=== PATIENT | male | born 1985 | race Caucasian/White ===

== ENCOUNTER 2016-12-09 12:15 | Emergency (ER) | payer OTHER ==
--- NOTE | 2016-12-09 13:23 | C.PDOC ---
History Of Present Illness 30 y/o male presents to the emergency department for evaluation of left-sided chest discomfort which began around 2 days ago. Patient notes his pain is positionally and digitally reproducible. Patient denies cough, SOB, palpitations , nausea, vomiting, extremity numbness/weakness. Time Seen by Provider: 12/09/16 13:11 Chief Complaint (Nursing): Chest Pain History Per: Patient History/Exam Limitations: no limitations Onset/Duration Of Symptoms: Days (2) Current Symptoms Are (Timing): Still Present Quality: "Pain" Associated Symptoms: denies: Nausea Additional History Per: Patient Past Medical History Reviewed: Historical Data, Nursing Documentation, Vital Signs Vital Signs: Last Vital Signs Temp 98.2 F 12/09/16 13:30 Pulse 62 12/09/16 13:30 Resp 18 12/09/16 13:30 BP 119/78 12/09/16 13:30 Pulse Ox 96 12/09/16 16:12 - Medical History PMH: No Chronic Diseases Surgical History: No Surg Hx Family History: States: Unknown Family Hx - Social History Hx Alcohol Use: No Hx Substance Use: No - Immunization History Hx Tetanus Toxoid Vaccination: No Hx Influenza Vaccination: No Hx Pneumococcal Vaccination: No Review Of Systems Except As Marked, All Systems Reviewed And Found Negative. Cardiovascular: Positive for: Chest Pain (left-sided discomfort ). Negative for : Palpitations Respiratory: Negative for: Cough, Shortness of Breath Gastrointestinal: Negative for: Nausea, Vomiting Neurological: Negative for: Weakness, Numbness Physical Exam - Physical Exam Appears: Non-toxic, No Acute Distress Skin: Normal Color, Warm, Dry, No Rash Head: Atraumatic, Normacephalic Eye(s): bilateral: Normal Inspection, PERRL, EOMI Oral Mucosa: Moist Neck: Normal ROM, Supple Chest: Symmetrical, No Deformity, Tenderness (left parasternal border ) Cardiovascular: Rhythm Regular, No Murmur Respiratory: Normal Breath Sounds, No Rales, No Rhonchi, No Wheezing Gastrointestinal/Abdominal: Soft, No Tenderness, No Guarding, No Rebound Back: Normal Inspection, No Vertebral Tenderness, No Paraspinal Tenderness Extremity: Normal ROM, Capillary Refill (less than 2 seconds ) Neurological/Psych: Oriented x3, Normal Speech, Normal Cognition Gait: Steady ED Course And Treatment ECG: Interpreted By Me ECG Rhythm: Sinus Rhythm ECG Interpretation: Normal Rate From EC O2 Sat by Pulse Oximetry: 96 (on RA) Pulse Ox Interpretation: Normal Progress Note: Pt received Motrin PO. Medical Decision Making Medical Decision Making: digitally and positionally reproducable L parasternal chest discomfort, no rash , normal EKG, c'w costochondritis.l Disposition Doctor Will See Patient In The: Office Counseled Patient/Family Regarding: Studies Performed, Diagnosis - Disposition Referrals: [facility] [Outside] Disposition: HOME/ ROUTINE Disposition Time: 13:22 Condition: GOOD Additional Instructions: bolsa de hielo 1/2 hora por hora, nada caliente ibuprofeno 600 mg cada 6 horas eligio necessario pepcid 20 mg en la noche para prevenir irritacion del estomago debido al ibuprofeno No leventa nada pesada por 1 semana Sigue en la [facility] (gratis) eligio necessario. Instructions: Costochondritis (ED) Print Language: QATARI - Clinical Impression Clinical Impression: Chest discomfort - Scribe Statement The provider has reviewed the documentation as recorded by the Scribe (Esperanza Ware) Provider Attestation: All medical record entries made by the Scribe were at my direction and personally dictated by me. I have reviewed the chart and agree that the record accurately reflects my personal performance of the history, physical exam, medical decision making, and the department course for this patient. I have also personally directed, reviewed, and agree with the discharge instructions and disposition.
[2016-12-09 13:31] VITALS: BP 119/78; PULSE 62; RESP 18; TEMP 98.2
[2016-12-09 16:11] VITALS: O2SAT 96
--- NOTE | 2016-12-10 11:57 | CARD ---
APPROVED REPORT EKG Measurement Heart [id number] <Conclusion> Normal sinus rhythm Normal ECG
== END 2016-12-09 13:47 | disposition home or self-care (01) ==
LOC: C.ER 12:15
DX: R07.89 Other chest pain (principal)

== ENCOUNTER 2017-04-02 13:09 | Emergency (ER) | payer OTHER ==
[2017-04-02 13:31] VITALS: BMI 27.1
[2017-04-02 13:34] VITALS: TEMP 98.2; O2SAT 98
[2017-04-02] MEDS ORDERED: Tetanus/Diphtheria Toxoids 0.5 ml Syringe IM ONE ×2 (14:04→14:09)
[2017-04-02] MEDS ORDERED: Bacitracin 500 Units/gm Oint Foilpak UD ONE (14:14)
--- NOTE | 2017-04-02 14:50 | C.PDOC ---
History Of Present Illness 31 year old male presents to the ED for evaluation of his right foot after he accidentally stepped on a nail yesterday. He denies active bleeding, extremity numbness/weakness. Patient states he is not up-to-date with Tetanus immunization. Time Seen by Provider: 04/02/17 13:48 Chief Complaint (Nursing): Abnormal Skin Integrity History Per: Patient History/Exam Limitations: no limitations Onset/Duration Of Symptoms: Hrs Current Symptoms Are (Timing): Still Present Location Of Injury: Right: Foot Quality Of Symptoms: Painful. denies: Draining Additional History Per: Patient Past Medical History Reviewed: Historical Data, Nursing Documentation, Vital Signs Vital Signs: Last Vital Signs Temp 98.2 F 04/02/17 13:29 Pulse 75 04/02/17 15:02 Resp 18 04/02/17 15:02 BP 124/72 04/02/17 15:02 Pulse Ox 98 04/02/17 23:51 - Medical History PMH: No Chronic Diseases Surgical History: No Surg Hx Family History: States: Unknown Family Hx - Social History Hx Alcohol Use: No Hx Substance Use: No - Immunization History Hx Tetanus Toxoid Vaccination: No Hx Influenza Vaccination: No Hx Pneumococcal Vaccination: No Review Of Systems Musculoskeletal: Positive for: Foot Pain (right) Neurological: Negative for: Weakness, Numbness Physical Exam - Physical Exam Appears: Non-toxic, No Acute Distress Skin: Normal Color, Warm, Dry, Other (small puncture wound to plantar aspect of right foot. no erythema or active bleeding ) Extremity: Normal ROM, No Tenderness, Capillary Refill (less than 2 seconds ), No Swelling Pulses: Left Dorsalis Pedis: Normal Neurological/Psych: Normal Speech, Normal Cognition Gait: Steady ED Course And Treatment O2 Sat by Pulse Oximetry: 98 (on RA) Pulse Ox Interpretation: Normal - Other Rad Foot XR X-Ray: Interpreted by Me, Viewed By Me, Read By Radiologist Interpretation: PROCEDURE: Right Foot Radiographs. HISTORY: stepped on nail, r/o FB Anatomic area of interest: Of the foot at the level of the proximal metatarsals. Plantar aspect. COMPARISON: None. FINDINGS: BONES: Normal. No fracture. JOINTS: Normal. SOFT TISSUES: No visulaized radiopaque/visualized foreign body. OTHER FINDINGS: None. IMPRESSION: No significant or acute findings to account for/ related to the clinical presentation. Progress Note: Right foot XR ordered. Results are unremarkable and show no evidence of foreign body. Patient received Ciproflaxin PO and Tetanus immunization IM. On reassessment, patient is resting comfortably, showing no signs of distress and reports an improvement in his symptoms. Patient is ambulatory in the ED and is stable for discharge. Patient is advised to follow up with his PMD within 1-2 days for further evaluation. Reassessment Condition: Improved Disposition - Disposition Disposition: HOME/ ROUTINE Disposition Time: 14:36 Condition: STABLE Additional Instructions: Follow up with your PMD within 1-2 days. Return to ED if feel worse. Prescriptions: Ciprofloxacin [Cipro] 1 tab PO BID #14 tab Instructions: Puncture Wound (ED) Forms: [employer] (Citizen [place]) - Clinical Impression Clinical Impression: Puncture wound of plantar aspect of foot - PA / CONTRACT ACCOUNTANT / Resident Statement MD/DO has reviewed & agrees with the documentation as recorded. - Scribe Statement The provider has reviewed the documentation as recorded by the Scribe (Esperanza Ware) All medical record entries made by the Scribe were at my direction and personally dictated by me. I have reviewed the chart and agree that the record accurately reflects my personal performance of the history, physical exam, medical decision making, and the department course for this patient. I have also personally directed, reviewed, and agree with the discharge instructions and disposition.
[2017-04-02 15:02] VITALS: BP 124/72; PULSE 75; RESP 18
--- NOTE | 2017-04-02 16:40 | RAD ---
PROCEDURE: Right Foot Radiographs. HISTORY: stepped on nail, r/o FB Anatomic area of interest: Of the foot at the level of the proximal metatarsals. Plantar aspect COMPARISON: None. FINDINGS: BONES: Normal. No fracture. JOINTS: Normal. SOFT TISSUES: No visulaized radiopaque/visualized foreign body. OTHER FINDINGS: None. IMPRESSION: No significant or acute findings to account for/ related to the clinical presentation. Please note: No preliminary report/ innterpretation of this examination provided by emergency department personnel.
== END 2017-04-02 15:03 | disposition home or self-care (01) ==
LOC: C.ER 13:09
DX: S91.331A Puncture wound without foreign body, right foot, initial encounter (principal); W45.0XXA Nail entering through skin, initial encounter

== ENCOUNTER 2018-03-02 08:08 | Observation (INO) | payer OTHER ==
[2018-03-02 08:08] VITALS: BMI 27.1
[2018-03-02] MEDS ORDERED: Sodium Chloride 0.9% 1,000 ML IV ONE ×2 (08:24→12:28)
[2018-03-02] MEDS ORDERED: Sodium Chloride 0.9% 1,000 ML ONE ×3 (08:28→18:40)
[2018-03-02 08:56] LABS: BASO % 0.4 % (0.0-2.0); EOS # 0.1 K/uL (0.0-0.7); EOS % 1.2 % (0.0-4.0); HEMOGLOBIN 14.2 g/dL (12.0-18.0); LYMPH # 2.1 K/uL (1.0-4.3); LYMPH % 27.5 % (20.0-40.0); MEAN CELL VOLUME 79.5 fL (80.0-94.0); MEAN CORPUSCULAR HEMOGLOBIN 27.3 pg (27.0-31.0); MEAN CORPUSCULAR HGB CONC 34.3 g/dL (33.0-37.0); MEAN PLATELET VOLUME 7.5 fL (7.2-11.7); MONO # 0.5 K/uL (0.0-0.8); MONO % 6.6 % (0.0-10.0); NEUT # 4.8 K/uL (1.8-7.0); NEUT % 64.3 % (50.0-75.0); NRBC % 0.1 % (0.0-2.0); RBC 5.19 Mil/uL (4.40-5.90); RED CELL DISTRIBUTION WIDTH 13.4 % (11.5-14.5); WHITE BLOOD COUNT 7.5 K/uL (4.8-10.8)
[2018-03-02 09:10] LABS: ALB/GLOB RATIO 1.4 (1.0-2.1); ALBUMIN 4.7 g/dL (3.5-5.0); ALT/SGPT 34 U/L (21-72); AST/SGOT 31 U/L (17-59); BLOOD UREA NITROGEN 15 mg/dL (9-20); CALCIUM 9.3 mg/dl (8.6-10.4); GFR NON-AFRICAN AMERICAN > 60; LIPASE 117 U/L (23-300)
[2018-03-02 10:35] LABS: SQUAMOUS EPITHIAL < 1 /hpf (0-5); URINE BILIRUBIN NEGATIVE (NEGATIVE); URINE BLOOD NEGATIVE (NEGATIVE); URINE CLARITY Clear (Clear); URINE COLOR Yellow (YELLOW); URINE GLUCOSE (UA) NORMAL (Normal); URINE LEUKOCYTE ESTERASE NEG Leu/uL (Negative); URINE PROTEIN NEGATIVE (NEGATIVE); URINE UROBILINOGEN NORMAL mg/dL (0.2-1.0)
--- NOTE | 2018-03-02 13:36 | C.PDOC ---
History Of Present Illness 32 year old male presents to the emergency department with complaints of dizziness, described as room spinning around him. Patient also reports nausea, vomiting, and epigastric abdominal pain since this morning at 6:30AM. He denies fever, dysuria, diarrhea, visual changes, facial droops, slurred speech, extremity weakness, and sensory changes. Time Seen by Provider: 03/02/18 08:13 Chief Complaint (Nursing): Abdominal Pain History Per: Patient History/Exam Limitations: no limitations Onset/Duration Of Symptoms: Hrs Current Symptoms Are (Timing): Still Present Location Of Pain/Discomfort: Epigastric Quality Of Discomfort: "Pain" Associated Symptoms: Nausea, Vomiting, Other (dizziness). denies: Fever, Diarrhea, Urinary Symptoms Past Medical History Reviewed: Historical Data, Nursing Documentation, Vital Signs Vital Signs: Last Vital Signs Temp 97.7 F 03/02/18 13:10 Pulse 82 03/02/18 13:10 Resp 17 03/02/18 13:10 BP 105/65 03/02/18 13:10 Pulse Ox 100 03/02/18 15:35 - Medical History PMH: No Chronic Diseases Surgical History: No Surg Hx Family History: States: No Known Family Hx - Social History Hx Alcohol Use: No Hx Substance Use: No - Immunization History Hx Tetanus Toxoid Vaccination: No Hx Influenza Vaccination: No Hx Pneumococcal Vaccination: No Review Of Systems Except As Marked, All Systems Reviewed And Found Negative. Constitutional: Negative for: Fever Eyes: Negative for: Vision Change Gastrointestinal: Positive for: Nausea, Vomiting, Abdominal Pain (epigastric). Negative for: Diarrhea Genitourinary: Negative for: Dysuria Neurological: Positive for: Dizziness. Negative for: Weakness, Other (facial droop, slurred speech, sensory changes) Physical Exam - Physical Exam Appears: Non-toxic, In Acute Distress (uncomfortable), Other (actively vomiting) Skin: Warm, Dry Head: Atraumatic, Normacephalic Eye(s): bilateral: Normal Inspection, PERRL, EOMI Oral Mucosa: Moist Neck: Normal, Supple Chest: Symmetrical Cardiovascular: Rhythm Regular, No Murmur Respiratory: Normal Breath Sounds, No Rales, No Rhonchi, No Wheezing Gastrointestinal/Abdominal: Soft, Tenderness (epigastric), No Distention, No Guarding, No Rebound Extremity: Normal ROM Neurological/Psych: Oriented x3, Normal Speech, Normal Cognition ED Course And Treatment - Laboratory Results Result Diagrams: 03/02/18 08:58 03/02/18 08:47 ECG: Interpreted By Me, Viewed By Me (NSR 74 bpm, normal axis, Q waves II, III, aVF, V5-V6, no acute ST changes) ECG Interpretation: Abnormal O2 Sat by Pulse Oximetry: 100 (RA) Pulse Ox Interpretation: Normal - CT Scan/US ct head CT/US Interpretation: Accession No. : [id number]. Patient Name / ID : CHRISSIE VARGAS / [id number]. Exam Date : 03/02/2018 15:05:15 ( Approved ). Study Comment : Sex / Age : M / 32Y. Creator : Kenny Posada MD. Dictator : Kenny Posada MD. Awning Finisher : Planer Operator / Grader : Kenny Posada MD. Approver2 : Report Date : 03/02/2018 15:22:23. My Comment : . Date of service: 03/02/2018. PROCEDURE: CT HEAD WITHOUT CONTRAST. HISTORY: intractable vertigo. COMPARISON: None available. TECHNIQUE: Axial computed tomography images were obtained through the head/brain without intravenous contrast. Radiation dose: Total exam DLP = 913.4 mGy-cm. This CT exam was performed using one or more of the following dose reduction techniques: Automated exposure control, adjustment of the mA and/or kV according to patient size, and/or use of iterative reconstruction technique. FINDINGS: HEMORRHAGE: No intracranial hemorrhage. BRAIN: No mass effect or edema. No atrophy or chronic microvascular ischemic changes. VENTRICLES: Unremarkable. No hydrocephalus. CALVARIUM: Unremarkable. PARANASAL SINUSES: Unremarkable as visualized. No significant inflammatory changes. MASTOID AIR CELLS: Unremarkable as visualized. No inflammatory changes. OTHER FINDINGS: None. IMPRESSION: No acute intracranial pathology. Progress Note: Plan: CT Head w/o Contrast. IV Fluids. Bloodwork. Meclizine 50mg PO. Urinalysis Disposition Counseled Patient/Family Regarding: Diagnosis, Need For Followup, Rx Given - Disposition Disposition: HOME/ ROUTINE Disposition Time: 13:35 Condition: STABLE - Clinical Impression Clinical Impression: Peripheral vertigo, Nausea, Vomiting - Scribe Statement The provider has reviewed the documentation as recorded by the Scribe (Mario Clifton) Provider Attestation: All medical record entries made by the Scribe were at my direction and personally dictated by me. I have reviewed the chart and agree that the record accurately reflects my personal performance of the history, physical exam, medical decision making, and the department course for this patient. I have also personally directed, reviewed, and agree with the discharge instructions and disposition.
--- NOTE | 2018-03-02 15:24 | CT ---
Date of service: 03/02/2018 PROCEDURE: CT HEAD WITHOUT CONTRAST. HISTORY: intractable vertigo COMPARISON: None available. TECHNIQUE: Axial computed tomography images were obtained through the head/brain without intravenous contrast. Radiation dose: Total exam DLP = 913.4 mGy-cm. This CT exam was performed using one or more of the following dose reduction techniques: Automated exposure control, adjustment of the mA and/or kV according to patient size, and/or use of iterative reconstruction technique. FINDINGS: HEMORRHAGE: No intracranial hemorrhage. BRAIN: No mass effect or edema. No atrophy or chronic microvascular ischemic changes. VENTRICLES: Unremarkable. No hydrocephalus. CALVARIUM: Unremarkable. PARANASAL SINUSES: Unremarkable as visualized. No significant inflammatory changes. MASTOID AIR CELLS: Unremarkable as visualized. No inflammatory changes. OTHER FINDINGS: None. IMPRESSION: No acute intracranial pathology.
[2018-03-02 16:23] LABS: BARBITURATES, UR NEGATIVE (NEGATIVE); BENZODIAZEPINES, UR NEGATIVE (NEGATIVE); OPIATES, UR NEGATIVE (NEGATIVE); PHENCYCLIDINE, UR NEGATIVE (NEGATIVE)
--- NOTE | 2018-03-02 17:48 | CP.PCM.HP ---
<Robinson Abreu M - Last Filed: 03/02/18 18:38> History of Present Illness - History of Present Illness History of Present Illness: PGY 1 Medicine History & Physical for Dr. Radford. 32 year old male with a history of labyrinthitis 10 years ago who presents to the ED reporting that when he got up this morning at 630 am he had sudden onset of dizziness, feeling like the room is spinning, associated with diffuse headache rated "11/10," nausea, vomiting (non bloody, non bilious, too many episodes to count), and lower abdominal pain. He states that movement exacerbated his symptoms. He took 2 Tylenol tablets without relief which prompted his visit 1 hour post onset of symptoms. He notes that his felt nauseous and vomited last night after dinner (they went out for tamyca) so initially he assumed it was something he ate, but when the symptoms persisted he became concerned. In the ED he was treated with Meclizine, Zofran 4mg x 2, 2 L fluid, Ativan 1mg x 2 and Reglan 10 mg x 2 after which he states he is feeling somewhat improved. He has continued dizziness with movement but when resting with his head turned to the left his dizziness subsides. He was also able to tolerate a tuna sandwich, the first food he has eaten since dinner last night. He denies fever, chills, chest pain, palpitations, vision changes, tinnitus, numbness or tingling in his extremities, weight loss or gain, diarrhea , constipation, or urinary changes. 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 absent: Chills, Night Sweats - EENT Eyes: absent: Blurred Vision, Change in Vision, Dry Eye Ears: Decreased Hearing, Dizziness. absent: Ear Discharge Nose/Mouth/Throat: absent: Sinus Pressure - Cardiovascular Cardiovascular: absent: Chest Pain, Dyspnea, Edema - Respiratory Respiratory: absent: Cough, Dyspnea, Wheezing - Gastrointestinal Gastrointestinal: Nausea, Vomiting. absent: Abdominal Pain, Constipation, Diarrhea - Genitourinary Genitourinary: absent: Difficulty Urinating, Dysuria - Musculoskeletal Musculoskeletal: absent: Arthralgias, Muscle Weakness, Myalgias - Neurological Neurological: Dizziness, Vertigo. absent: Burning Sensations, Tingling, Tremor , Weakness - Psychiatric Psychiatric: absent: Behavioral Changes, Confusion, Depression - Endocrine Endocrine: absent: Polydipsia, Polyphagia, Polyuria Past Patient History - Infectious Disease Hx of Infectious Diseases: None - Past Social History Smoking Status: Never Smoked - PSYCHIATRIC Hx Substance Use: No - SURGICAL HISTORY Hx Surgeries: No - ANESTHESIA Hx Anesthesia: No Hx Anesthesia Reactions: No Meds Allergies/Adverse Reactions: Allergies Allergy/AdvReac Type Severity Reaction Status Date / Time No Known Allergies Allergy Verified 03/02/18 08:14 Physical Exam - Constitutional Appears: Non-toxic, No Acute Distress - Head Exam Head Exam: ATRAUMATIC, NORMAL INSPECTION, NORMOCEPHALIC - Eye Exam Eye Exam: EOMI, Normal appearance, PERRL Pupil Exam: NORMAL ACCOMODATION - ENT Exam ENT Exam: Mucous Membranes Dry Additional comments: cerumen impaction b/l - Respiratory Exam Respiratory Exam: Clear to Auscultation Bilateral, NORMAL BREATHING PATTERN. absent: Rales, Rhonchi, Wheezes - Cardiovascular Exam Cardiovascular Exam: +S1, +S2. absent: Systolic Murmur - GI/Abdominal Exam GI & Abdominal Exam: Normal Bowel Sounds, Soft. absent: Distended, Firm, Guarding - Extremities Exam Extremities exam: Positive for: full ROM, normal inspection. Negative for: calf tenderness, pedal edema, tenderness - Neurological Exam Neurological exam: Alert, CN II-XII Intact, Oriented x3 Additional comments: Normal vision in all reilly - Expanded Neurological Exam Expanded Cranial nerves: EOM's Intact: Normal, Facial Sensation: Normal - Psychiatric Exam Psychiatric exam: Normal Affect, Normal Mood - Skin Skin Exam: Dry, Intact, Normal Color, Warm Results - Vital Signs Recent Vital Signs: Last Vital Signs Temp 97.7 F 03/02/18 13:10 Pulse 82 03/02/18 13:10 Resp 17 03/02/18 13:10 BP 105/65 03/02/18 13:10 Pulse Ox 100 03/02/18 16:19 - Labs Result Diagrams: 03/02/18 08:58 03/02/18 08:47 Labs: Laboratory Results - last 24 hr 03/02/18 03/02/18 03/02/18 08:47 08:58 10:24 WBC 7.5 RBC 5.19 Hgb 14.2 Hct 41.3 MCV 79.5 L MCH 27.3 MCHC 34.3 RDW 13.4 Plt Count 274 MPV 7.5 Neut % (Auto) 64.3 Lymph % (Auto) 27.5 Blair % (Auto) 6.6 Eos % (Auto) 1.2 Baso % (Auto) 0.4 Neut # (Auto) 4.8 Lymph # (Auto) 2.1 [place] # (Auto) 0.5 Eos # (Auto) 0.1 Baso # (Auto) 0.0 Sodium 142 Potassium 4.2 Chloride 102 Carbon Dioxide 26 Anion Gap 18 BUN 15 Creatinine 0.6 L Est GFR ( Amer) > 60 Est GFR (Non-Af Amer) > 60 Random Glucose 116 H Calcium 9.3 Total Bilirubin 0.5 AST 31 ALT 34 Alkaline Phosphatase 74 Total Protein 7.9 Albumin 4.7 Globulin 3.2 Albumin/Globulin Ratio 1.4 Lipase 117 Urine Color Yellow Urine Clarity Clear Urine pH 6.0 Ur Specific [place] 1.026 Urine Protein Negative Urine Glucose (UA) Normal Urine Ketones Negative Urine Blood Negative Urine Nitrate Negative Urine Bilirubin Negative Urine Urobilinogen Normal Ur Leukocyte Esterase Neg Urine WBC (Auto) < 1 Urine RBC (Auto) 1 Ur Squamous Epith Cells < 1 Urine Opiates Screen Urine Methadone Screen Ur Barbiturates Screen Ur Phencyclidine Scrn Ur Amphetamines Screen U Benzodiazepines Scrn U Oth Cocaine Metabols U Cannabinoids Screen 03/02/18 15:57 WBC RBC Hgb Hct MCV MCH MCHC RDW Plt Count MPV Neut % (Auto) Lymph % (Auto) [place] % (Auto) Eos % (Auto) Baso % (Auto) Neut # (Auto) Lymph # (Auto) [place] # (Auto) Eos # (Auto) Baso # (Auto) Sodium Potassium Chloride Carbon Dioxide Anion Gap BUN Creatinine Est GFR ( Amer) Est GFR (Non-Af Amer) Random Glucose Calcium Total Bilirubin AST ALT Alkaline Phosphatase Total Protein Albumin Globulin Albumin/Globulin Ratio Lipase Urine Color Urine Clarity Urine pH Ur Specific [place] Urine Protein Urine Glucose (UA) Urine Ketones Urine Blood Urine Nitrate Urine Bilirubin Urine Urobilinogen Ur Leukocyte Esterase Urine WBC (Auto) Urine RBC (Auto) Ur Squamous Epith Cells Urine Opiates Screen Negative Urine Methadone Screen Negative Ur Barbiturates Screen Negative Ur Phencyclidine Scrn Negative Ur Amphetamines Screen Negative U Benzodiazepines Scrn Negative U Oth Cocaine Metabols Negative U Cannabinoids Screen Negative Assessment & Plan - Assessment and Plan (Free Text) Assessment: 32 year old male with a history of labyrinthitis 10 years ago who presents to the ED reporting that when he got up this morning at 630 am he had sudden onset of dizziness, feeling like the room is spinning, associated with diffuse headache rated "11/10," nausea, vomiting (non bloody, non bilious, too many episodes to count): 1) Intractable vertigo 22 BBPV - observe/ regular - orthostatics checked - pt is not orthostatic - F/u EKG w/ SIMONE Q6H - 6PM, 12AM, 6AM - NS 100 cc/hr - F/u neuro consults - F/u CTA head/neck 2) Dehydration - orthostatics checked - not orthostatics - zofran 4mg PO Q6H PRN nausea - NS 100 cc/hr 3) Nausea/vomitting - Zofrn 4mg PO Q6H PRN nuasea 4) B/L Cerumen impaction - unable to visual inner ear - will need to f/ u w/ PMD/ ENT to have removal - Debrox drops to soften ear wax 5) Gait instability - Fall precautions - PT/OT eval 6) Decreasing Right hearing loss - suspected secondary to build up to cerumen buildup - 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 7) Prophylactic measure - SCDS b/l - pepcid 20mg BID - Jevoha's witness - observant - Fall precautions <Jovanna Radford V - Last Filed: 03/02/18 22:07> Results - Vital Signs Recent Vital Signs: Last Vital Signs Temp 98.1 F 03/02/18 18:48 Pulse 83 03/02/18 18:48 Resp 23 03/02/18 18:48 BP 113/72 03/02/18 18:48 Pulse Ox 96 03/02/18 18:48 - Labs Result Diagrams: 03/02/18 08:58 03/02/18 08:47 Labs: Laboratory Results - last 24 hr 03/02/18 03/02/18 03/02/18 08:47 08:58 10:24 WBC 7.5 RBC 5.19 Hgb 14.2 Hct 41.3 MCV 79.5 L MCH 27.3 MCHC 34.3 RDW 13.4 Plt Count 274 MPV 7.5 Neut % (Auto) 64.3 Lymph % (Auto) 27.5 [place] % (Auto) 6.6 Eos % (Auto) 1.2 Baso % (Auto) 0.4 Neut # (Auto) 4.8 Lymph # (Auto) 2.1 [place] # (Auto) 0.5 Eos # (Auto) 0.1 Baso # (Auto) 0.0 Sodium 142 Potassium 4.2 Chloride 102 Carbon Dioxide 26 Anion Gap 18 BUN 15 Creatinine 0.6 L Est GFR ( Amer) > 60 Est GFR (Non-Af Amer) > 60 Random Glucose 116 H Calcium 9.3 Total Bilirubin 0.5 AST 31 ALT 34 Alkaline Phosphatase 74 Total Creatine Kinase CK-MB (Mass) Troponin I Total Protein 7.9 Albumin 4.7 Globulin 3.2 Albumin/Globulin Ratio 1.4 Lipase 117 Urine Color Yellow Urine Clarity Clear Urine pH 6.0 Ur Specific [place] 1.026 Urine Protein Negative Urine Glucose (UA) Normal Urine Ketones Negative Urine Blood Negative Urine Nitrate Negative Urine Bilirubin Negative Urine Urobilinogen Normal Ur Leukocyte Esterase Neg Urine WBC (Auto) < 1 Urine RBC (Auto) 1 Ur Squamous Epith Cells < 1 Urine Opiates Screen Urine Methadone Screen Ur Barbiturates Screen Ur Phencyclidine Scrn Ur Amphetamines Screen U Benzodiazepines Scrn U Oth Cocaine Metabols U Cannabinoids Screen 03/02/18 03/02/18 15:57 18:47 WBC RBC Hgb Hct MCV MCH MCHC RDW Plt Count MPV Neut % (Auto) Lymph % (Auto) [place] % (Auto) Eos % (Auto) Baso % (Auto) Neut # (Auto) Lymph # (Auto) [place] # (Auto) Eos # (Auto) Baso # (Auto) Sodium Potassium Chloride Carbon Dioxide Anion Gap BUN Creatinine Est GFR ( Amer) Est GFR (Non-Af Amer) Random Glucose Calcium Total Bilirubin AST ALT Alkaline Phosphatase Total Creatine Kinase 81 CK-MB (Mass) 1.05 Troponin I < 0.0120 Total Protein Albumin Globulin Albumin/Globulin Ratio Lipase Urine Color Urine Clarity Urine pH Ur Specific [place] Urine Protein Urine Glucose (UA) Urine Ketones Urine Blood Urine Nitrate Urine Bilirubin Urine Urobilinogen Ur Leukocyte Esterase Urine WBC (Auto) Urine RBC (Auto) Ur Squamous Epith Cells Urine Opiates Screen Negative Urine Methadone Screen Negative Ur Barbiturates Screen Negative Ur Phencyclidine Scrn Negative Ur Amphetamines Screen Negative U Benzodiazepines Scrn Negative U Oth Cocaine Metabols Negative U Cannabinoids Screen Negative Attending/Attestation - Attestation I have personally seen and examined this patient.: Yes I have fully participated in the care of the patient.: Yes I have reviewed all pertinent clinical information: Yes Notes (Text): Patient seen, examined, and case discussed with day-time resident. patient seen in Bed 2 in the Emergency Room approximately 4:30PM accompanied by and mother at bedside. patient with no prior medical hx, noted for nausea/ vomitting/vertigo since this morning, worsen while lying down and as he turns his head. Orthostatics obtained, Patient is not orthostatic. Patient is dehydrated; received 2 NS Liters X1, Antivert X2, Ativan 2, but vertigo is not abated nor is patient is stable when I put him in upright position. No cranial nerve deficits noted. Strength intact b/l upper and lower extremity 5 /5. Negative Babinksi. Ears visualized but TMIs obscured by cercum bilateral. Mild right hearing loss suspect secondary to cereum buildup. 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 patient also self-admitted uses que-tips which he was counselled to stop. Patient is newlywed, last Friday, was poorly sleeping prior to events and eating prior to the wedding. patient's accompanied at bedside. Assessment/Plan 1) Intractable vertigo secondary to BBPV Assessment/Plan * observe/ regular * orthostatics checked - pt is not orthostatic * F/u EKG w/ SIMONE Q6H - 6PM, 12AM, 6AM * Initial EKG: NSR * NS 100 cc/hr * Neurology (Dr. Santos)--> case discussed recommend for CT head and neck * ENT (Dr. Zhao) vertigo * Fall precautions * Neurochecks Q4H 2) Dehydration Assessment/Plan * orthostatics checked - not orthostatic * Note had received 2 Liters of NS prior to my arrival * Zofran 4mg PO Q6H PRN nausea * NS 100 cc/hr 3) Nausea/vomitting Assessment/Plan * Zofran 4mg PO Q6H PRN nuasea 4) B/L Cerumen impaction Assessment/Plan * unable to visual inner ear given the amount of wax buildup * Will start Debrox drops to soften ear wax * Patient will need to f/ u w/ PMD/ ENT to have removal 5) Gait instability secondary to BPPV Assessment/Plan * Fall precautions * PT/OT eval 6) Decreasing Right hearing loss Assessment/Plan * suspected secondary to build up to cerumen buildup * Note: patient works in construction 4 years ago ago; does not wear protective gear; advised to wearing property gear * Will likely need ENT follow-up upon discharge 7) Prophylactic measure * SCDS b/l * pepcid 20mg BID * Jevoha's witness - observant * Fall precautions * PT/OT eval
[2018-03-02] MEDS ORDERED: Iodixanol 320 MG/ML 100 ML BOTTLE IV ONE (17:58)
[2018-03-02] MEDS: Sodium Chloride 0.9% 1,000 ML IV SCH (18:47)
[2018-03-02 19:16] LABS: CK-MB 1.05 ng/mL (0.0-3.38)
[2018-03-02 23:51] VITALS: RESP 20
[2018-03-03 00:52] LABS: CK-MB 0.76 ng/mL (0.0-3.38)
[2018-03-03] MEDS: Sodium Chloride 0.9% 1,000 ML IV SCH ×3 (04:00→13:30)
[2018-03-03 06:51] LABS: BASO % 0.4 % (0.0-2.0); EOS # 0.1 K/uL (0.0-0.7); EOS % 0.9 % (0.0-4.0); HEMOGLOBIN 12.7 g/dL (12.0-18.0); LYMPH # 1.9 K/uL (1.0-4.3); MEAN CELL VOLUME 78.9 fL (80.0-94.0); MEAN CORPUSCULAR HEMOGLOBIN 26.9 pg (27.0-31.0); MEAN CORPUSCULAR HGB CONC 34.1 g/dL (33.0-37.0); MEAN PLATELET VOLUME 7.3 fL (7.2-11.7); MONO # 0.5 K/uL (0.0-0.8); MONO % 6.8 % (0.0-10.0); NEUT # 5.1 K/uL (1.8-7.0); NEUT % 66.9 % (50.0-75.0); NRBC % 0.1 % (0.0-2.0); RBC 4.73 Mil/uL (4.40-5.90); RED CELL DISTRIBUTION WIDTH 13.4 % (11.5-14.5); WHITE BLOOD COUNT 7.6 K/uL (4.8-10.8)
[2018-03-03 07:00] LABS: ALB/GLOB RATIO 1.4 (1.0-2.1); ALBUMIN 3.7 g/dL (3.5-5.0); ALT/SGPT 49 U/L (21-72); AST/SGOT 48 U/L (17-59); BLOOD UREA NITROGEN 11 mg/dL (9-20); CALCIUM 8.5 mg/dl (8.6-10.4); GFR NON-AFRICAN AMERICAN > 60
--- NOTE | 2018-03-03 07:35 | CP.PCM.PN ---
Objective - Vital Signs/Intake and Output Vital Signs (last 24 hours): Temp Pulse Resp BP Pulse Ox 98.1 F 55 L 20 123/67 97 03/03/18 04:00 03/03/18 04:09 03/03/18 04:00 03/03/18 04:00 03/03/18 04:00 Intake and Output: 03/03/18 03/03/18 06:59 18:59 Output Total 600 Balance -600 - Medications Medications: Current Medications Carbamide Peroxide (Debrox Ear Drops) 0 ml AU BID [facility] Last Admin: 03/02/18 21:12 Dose: 5 drop Famotidine (Pepcid) 20 mg PO BID [facility] Last Admin: 03/02/18 18:45 Dose: 20 mg Sodium Chloride (Sodium Chloride 0.9%) 1,000 mls @ 100 mls/hr IV .Q10H [facility] Last Admin: 03/03/18 06:48 Dose: 100 mls/hr Ondansetron HCl (Zofran Tab) 4 mg PO Q6 PRN PRN Reason: Nausea/Vomiting - Labs Labs: 03/03/18 06:29 03/03/18 06:26
--- NOTE | 2018-03-03 08:14 | CP.PCM.CON ---
History of Present Illness - History of Present Illness History of Present Illness: Neurology Consult Note - Dr Santos Patient is a 32 year old male with past medical history of labyrinthitis that was diagnosed and treated in [facility] 10 years ago, who presented to the hospital for dizziness that started 6:30am on 03/02/18. Patient states that he woke up in the morning and felt nauseous, he immediately started feeling dizzy. Described the dizziness as the room spinning. States that the dizziness was present that entire day and was associated with nausea and multiple episodes of bilious vomiting. Unable to quantify how many times he vomited. Patient states that he experienced theses symptoms 10 years ago when he was diagnosed with labyrinthitis in [facility]. Patient states that he took Tylenol 650mg PO x 1 with no improvement in symptoms. Patient states that for the past year he has been hearing a crushed glass sound intermittently. He is unable to pinpoint which ear he hears this sound in. States that it only lasts a few seconds then it goes away. At this time, patient states that the dizziness has resolved but his head feels heavy. He is ambulating with no symptoms and tolerating diet. Denies any fevers, chills, headaches, dizziness, chest pain, sob, abdominal pain, urinary symptoms, changes in bowel habits. Denies any sick contacts or recent travel. Allergies: NKDA Medications: None Medical History: Labyrinthitis Surgical History: Denies Social History: Denies alcohol, tobacco, drug use; former construction mgr, currently unemployed, recently Family History: Mother - Vertigo; Father - Hypertension Past Patient History - Infectious Disease Hx of Infectious Diseases: None - Past Social History Smoking Status: Never Smoked - PSYCHIATRIC Hx Substance Use: No - SURGICAL HISTORY Hx Surgeries: No - ANESTHESIA Hx Anesthesia: No Hx Anesthesia Reactions: No Meds Home Medications: Home Medication List Medication Instructions Recorded Confirmed Type Carbamide Peroxide [Debrox Ear 2 drop AU BID #1 bottle 03/03/18 Rx Drops] Meclizine [Meclizine*] 25 mg PO QID PRN #60 tab 03/03/18 Rx Allergies/Adverse Reactions: Allergies Allergy/AdvReac Type Severity Reaction Status Date / Time No Known Allergies Allergy Verified 03/02/18 08:14 - Medications Medications: Current Medications Carbamide Peroxide (Debrox Ear Drops) 0 ml AU BID [facility] Last Admin: 03/02/18 21:12 Dose: 5 drop Famotidine (Pepcid) 20 mg PO BID [facility] Last Admin: 03/02/18 18:45 Dose: 20 mg Sodium Chloride (Sodium Chloride 0.9%) 1,000 mls @ 100 mls/hr IV .Q10H [facility] Last Admin: 03/03/18 06:48 Dose: 100 mls/hr Ondansetron HCl (Zofran Tab) 4 mg PO Q6 PRN PRN Reason: Nausea/Vomiting Physical Exam - Constitutional Appears: Well, No Acute Distress - Head Exam Head Exam: ATRAUMATIC, NORMAL INSPECTION, NORMOCEPHALIC - Eye Exam Eye Exam: EOMI, Normal appearance, PERRL. absent: Conjunctival injection, Nystagmus Pupil Exam: NORMAL ACCOMODATION, PERRL - ENT Exam ENT Exam: Mucous Membranes Moist - Neck Exam Neck exam: Positive for: Full Rom. Negative for: Tenderness - Respiratory Exam Respiratory Exam: Clear to Auscultation Bilateral, NORMAL BREATHING PATTERN. absent: Rales, Rhonchi, Wheezes - Cardiovascular Exam Cardiovascular Exam: REGULAR RHYTHM, +S1, +S2. absent: Bradycardia, Irregular Rhythm, Systolic Murmur - GI/Abdominal Exam GI & Abdominal Exam: Normal Bowel Sounds, Soft. absent: Tenderness - Extremities Exam Extremities exam: Positive for: full ROM, normal inspection, pedal pulses present. Negative for: calf tenderness - Back Exam Back exam: NORMAL INSPECTION - Neurological Exam Neurological exam: Alert, CN II-XII Intact, Oriented x3 - Expanded Neurological Exam Expanded Patient oriented to: person, place, time Cranial nerves: EOM's Intact: Normal, Facial Sensation: Normal Cerebellar Function: Finger to Nose: Normal Upper motor neuron: Babinski Sign: Normal Neuro motor strength exam: Left Upper Extremity: 5, Right Upper Extremity: 5, Left Lower Extremity: 5, Right Lower Extremity: 5 - Psychiatric Exam Psychiatric exam: Normal Affect, Normal Mood - Skin Skin Exam: Normal Color, Warm Results - Vital Signs Recent Vital Signs: Last Vital Signs Temp 97.7 F 03/03/18 07:49 Pulse 74 03/03/18 07:49 Resp 20 03/03/18 07:49 BP 119/73 03/03/18 07:49 Pulse Ox 98 03/03/18 07:49 - Labs Result Diagrams: 03/03/18 06:29 03/03/18 06:26 Labs: Laboratory Results - last 24 hr 03/02/18 03/02/18 03/02/18 08:47 08:58 10:24 WBC 7.5 RBC 5.19 Hgb 14.2 Hct 41.3 MCV 79.5 L MCH 27.3 MCHC 34.3 RDW 13.4 Plt Count 274 MPV 7.5 Neut % (Auto) 64.3 Lymph % (Auto) 27.5 [place] % (Auto) 6.6 Eos % (Auto) 1.2 Baso % (Auto) 0.4 Neut # (Auto) 4.8 Lymph # (Auto) 2.1 [place] # (Auto) 0.5 Eos # (Auto) 0.1 Baso # (Auto) 0.0 Sodium 142 Potassium 4.2 Chloride 102 Carbon Dioxide 26 Anion Gap 18 BUN 15 Creatinine 0.6 L Est GFR ( Amer) > 60 Est GFR (Non-Af Amer) > 60 Random Glucose 116 H Calcium 9.3 Phosphorus Magnesium Total Bilirubin 0.5 AST 31 ALT 34 Alkaline Phosphatase 74 Total Creatine Kinase CK-MB (Mass) Troponin I Total Protein 7.9 Albumin 4.7 Globulin 3.2 Albumin/Globulin Ratio 1.4 Lipase 117 Urine Color Yellow Urine Clarity Clear Urine pH 6.0 Ur Specific [place] 1.026 Urine Protein Negative Urine Glucose (UA) Normal Urine Ketones Negative Urine Blood Negative Urine Nitrate Negative Urine Bilirubin Negative Urine Urobilinogen Normal Ur Leukocyte Esterase Neg Urine WBC (Auto) < 1 Urine RBC (Auto) 1 Ur Squamous Epith Cells < 1 Urine Opiates Screen Urine Methadone Screen Ur Barbiturates Screen Ur Phencyclidine Scrn Ur Amphetamines Screen U Benzodiazepines Scrn U Oth Cocaine Metabols U Cannabinoids Screen 03/02/18 03/02/18 03/03/18 15:57 18:47 00:13 WBC RBC Hgb Hct MCV MCH MCHC RDW Plt Count MPV Neut % (Auto) Lymph % (Auto) [place] % (Auto) Eos % (Auto) Baso % (Auto) Neut # (Auto) Lymph # (Auto) [place] # (Auto) Eos # (Auto) Baso # (Auto) Sodium Potassium Chloride Carbon Dioxide Anion Gap BUN Creatinine Est GFR ( Amer) Est GFR (Non-Af Amer) Random Glucose Calcium Phosphorus Magnesium Total Bilirubin AST ALT Alkaline Phosphatase Total Creatine Kinase 81 78 CK-MB (Mass) 1.05 0.76 Troponin I < 0.0120 < 0.0120 Total Protein Albumin Globulin Albumin/Globulin Ratio Lipase Urine Color Urine Clarity Urine pH Ur Specific [place] Urine Protein Urine Glucose (UA) Urine Ketones Urine Blood Urine Nitrate Urine Bilirubin Urine Urobilinogen Ur Leukocyte Esterase Urine WBC (Auto) Urine RBC (Auto) Ur Squamous Epith Cells Urine Opiates Screen Negative Urine Methadone Screen Negative Ur Barbiturates Screen Negative Ur Phencyclidine Scrn Negative Ur Amphetamines Screen Negative U Benzodiazepines Scrn Negative U Oth Cocaine Metabols Negative U Cannabinoids Screen Negative 03/03/18 03/03/18 06:26 06:29 WBC 7.6 RBC 4.73 Hgb 12.7 Hct 37.3 MCV 78.9 L MCH 26.9 L MCHC 34.1 RDW 13.4 Plt Count 244 MPV 7.3 Neut % (Auto) 66.9 Lymph % (Auto) 25.0 [place] % (Auto) 6.8 Eos % (Auto) 0.9 Baso % (Auto) 0.4 Neut # (Auto) 5.1 Lymph # (Auto) 1.9 [place] # (Auto) 0.5 Eos # (Auto) 0.1 Baso # (Auto) 0.0 Sodium 141 Potassium 3.7 Chloride 106 Carbon Dioxide 28 Anion Gap 11 BUN 11 Creatinine 0.7 L Est GFR ( Amer) > 60 Est GFR (Non-Af Amer) > 60 Random Glucose 109 Calcium 8.5 L Phosphorus 3.4 Magnesium 1.8 Total Bilirubin 0.2 AST 48 ALT 49 Alkaline Phosphatase 57 Total Creatine Kinase CK-MB (Mass) Troponin I Total Protein 6.3 Albumin 3.7 Globulin 2.6 Albumin/Globulin Ratio 1.4 Lipase Urine Color Urine Clarity Urine pH Ur Specific [place] Urine Protein Urine Glucose (UA) Urine Ketones Urine Blood Urine Nitrate Urine Bilirubin Urine Urobilinogen Ur Leukocyte Esterase Urine WBC (Auto) Urine RBC (Auto) Ur Squamous Epith Cells Urine Opiates Screen Urine Methadone Screen Ur Barbiturates Screen Ur Phencyclidine Scrn Ur Amphetamines Screen U Benzodiazepines Scrn U Oth Cocaine Metabols U Cannabinoids Screen Assessment & Plan - Assessment and Plan (Free Text) Assessment: A/P: Patient is a 32 year old male with past medical history of Labyrinthitis who presented with intractable dizziness associated with nausea and vomiting. Intractable Dizziness r/o cardioneurogenic causes -Stable, afebrile -Monitor on telemetry -EKG showed no ST-T wave changes, troponins negative x 2 -CT head showed no acute intracranial pathology, CTA head and neck unremarkable -Likely due to vertigo, continue Meclizine as needed, encourage PO hydration -Zofran as needed for nausea -ENT consultation pending -Patient is cleared for discharge home from neurological standpoint -Plan discussed with Dr Tom Denis DO PGY-2
--- NOTE | 2018-03-03 13:05 | CT ---
Date of service: 03/02/2018 PROCEDURE: CT Angiography of the neck and Brain. HISTORY: intractable vertigo COMPARISON: Comparison is made with the previous CT of the head without contrast dated 03/02/2018 TECHNIQUE: CT angiography of the neck and intracranial arteries was performed. Coronal and sagittal maximum intensity projection reformated images were generated. This CT exam was performed using one or more of the following dose reduction techniques: Automated exposure control, adjustment of the mA and/or kV according to patient size, and/or use of iterative reconstruction technique. Total exam DLP: 571.45. Contrast volume: 100 cc of Visipaque 320 intravenously. FINDINGS: RIGHT CAROTID ARTERIES: Common Carotid Artery: Normal. Carotid Bifurcation: Normal. Internal Carotid Artery:Normal. External Carotid Artery (proximal branches): Normal. LEFT CAROTID ARTERIES: Common Carotid Artery: Normal. Carotid Bifurcation: Normal. Internal Carotid Artery:Normal. External Carotid Artery (proximal branches): Normal. VERTEBRAL ARTERIES: Right Vertebral Artery: Normal. Left Vertebral Artery: Normal. INTERNAL CEREBRAL ARTERIES: Unremarkable. The skull base, petrous, cavernous and supraclinoid segments are bilaterally widely patent. ANTERIOR CEREBRAL ARTERIES: Unremarkable. A1 and A2 segments are widely patent. Smaller distal branches unremarkable, as visualized. MIDDLE CEREBRAL ARTERIES: Unremarkable. M1 and M2 segments are widely patent. Perisylvian branches grossly symmetric. POSTERIOR CIRCULATION: Basilar Artery: Unremarkable. Distal Vertebral Arteries: Unremarkable. Posterior Cerebral Arteries: Unremarkable. Posterior Inferior Cerebellar Arteries: Unremarkable. ANEURYSM/ VASCULAR MALFORMATIONS: None. OTHER FINDINGS: None. IMPRESSION: Unremarkable CT Angiography of the neck and Brain. Preliminary report was submitted by virtual Radiology contains concordant findings.
[2018-03-03] MEDS ORDERED: Pneumococcal 23-Valent Vaccine IM ONE (13:34)
[2018-03-03 16:09] VITALS: BP 133/85; PULSE 77; TEMP 98.4; O2SAT 96
--- NOTE | 2018-03-03 19:54 | CP.PCM.DIS ---
Provider - Provider Date of Admission: 03/02/18 15:42 Attending physician: Jovanna Radford DO Consults: Dr. Santos, Dr. Zhao Time Spent in preparation of Discharge (in minutes): 45 Diagnosis - Discharge Diagnosis (1) Nausea Status: Acute Comment: Patient was given IV fluids to obtain hydration and was given Meclizine, symptoms resolved following therapy. Hospital Course - Lab Results Lab Results: Most Recent Lab Values WBC 7.6 K/uL (4.8-10.8) 03/03/18 06:29 RBC 4.73 Mil/uL (4.40-5.90) 03/03/18 06:29 Hgb 12.7 g/dL (12.0-18.0) 03/03/18 06: Hct 37.3 % (35.0-51.0) 03/03/18 06: MCV 78.9 fL (80.0-94.0) L 03/03/18 06: MCH 26.9 pg (27.0-31.0) L 03/03/18 06: MCHC 34.1 g/dL (33.0-37.0) 03/03/18 06:29 RDW 13.4 % (11.5-14.5) 03/03/18 06: Plt Count 244 K/uL (130-400) 03/03/18 06:29 MPV 7.3 fL (7.2-11.7) 03/03/18 06: Neut % (Auto) 66.9 % (50.0-75.0) 03/03/18 06: Lymph % (Auto) 25.0 % (20.0-40.0) 03/03/18 06: [place] % (Auto) 6.8 % (0.0-10.0) 03/03/18 06: Eos % (Auto) 0.9 % (0.0-4.0) 03/03/18 06: Baso % (Auto) 0.4 % (0.0-2.0) 03/03/18 06: Neut # (Auto) 5.1 K/uL (1.8-7.0) 03/03/18 06: Lymph # (Auto) 1.9 K/uL (1.0-4.3) 03/03/18 06:29 [place] # (Auto) 0.5 K/uL (0.0-0.8) 03/03/18 06:29 Eos # (Auto) 0.1 K/uL (0.0-0.7) 03/03/18 06:29 Baso # (Auto) 0.0 K/uL (0.0-0.2) 03/03/18 06:29 Sodium 141 mmol/L (132-148) 03/03/18 06:26 Potassium 3.7 mmol/L (3.6-5.2) 03/03/18 06:26 Chloride 106 mmol/L (98-107) 03/03/18 06:26 Carbon Dioxide 28 mmol/L (22-30) 03/03/18 06:26 Anion Gap 11 (10-20) 03/03/18 06:26 BUN 11 mg/dL (9-20) 03/03/18 06:26 Creatinine 0.7 mg/dL (0.8-1.5) L 03/03/18 06:26 Est GFR ( Amer) > 60 03/03/18 06:26 Est GFR (Non-Af Amer) > 60 03/03/18 06:26 Random Glucose 109 mg/dL (75-110) 03/03/18 06:26 Calcium 8.5 mg/dl (8.6-10.4) L 03/03/18 06:26 Phosphorus 3.4 mg/dL (2.5-4.5) 03/03/18 06:26 Magnesium 1.8 mg/dL (1.6-2.3) 03/03/18 06:26 Total Bilirubin 0.2 mg/dL (0.2-1.3) 03/03/18 06:26 AST 48 U/L (17-59) 03/03/18 06:26 ALT 49 U/L (21-72) 03/03/18 06:26 Alkaline Phosphatase 57 U/L (38-126) 03/03/18 06:26 Total Creatine Kinase 78 U/L (55-170) 03/03/18 00:13 CK-MB (Mass) 0.76 ng/mL (0.0-3.38) 03/03/18 00:13 Troponin I < 0.0120 ng/mL (0.00-0.120) 03/03/18 00:13 Total Protein 6.3 g/dL (6.3-8.3) 03/03/18 06:26 Albumin 3.7 g/dL (3.5-5.0) 03/03/18 06:26 Globulin 2.6 gm/dL (2.2-3.9) 03/03/18 06:26 Albumin/Globulin Ratio 1.4 (1.0-2.1) 03/03/18 06:26 Lipase 117 U/L (23-300) 03/02/18 08:47 Urine Color Yellow (YELLOW) 03/02/18 10:24 Urine Clarity Clear (Clear) 03/02/18 10:24 Urine pH 6.0 (5.0-8.0) 03/02/18 10:24 Ur Specific [place] 1.026 (1.003-1.030) 03/02/18 10:24 Urine Protein Negative mg/dL (NEGATIVE) 03/02/18 10:24 Urine Glucose (UA) Normal mg/dL (Normal) 03/02/18 10:24 Urine Ketones Negative mg/dL (NEGATIVE) 03/02/18 10:24 Urine Blood Negative (NEGATIVE) 03/02/18 10:24 Urine Nitrate Negative (NEGATIVE) 03/02/18 10:24 Urine Bilirubin Negative (NEGATIVE) 03/02/18 10:24 Urine Urobilinogen Normal mg/dL (0.2-1.0) 03/02/18 10:24 Ur Leukocyte Esterase Neg [place]/uL (Negative) 03/02/18 10:24 Urine WBC (Auto) < 1 /hpf (0-5) 03/02/18 10:24 Urine RBC (Auto) 1 /hpf (0-3) 03/02/18 10:24 Ur Squamous Epith Cells < 1 /hpf (0-5) 03/02/18 10:24 Urine Opiates Screen Negative (NEGATIVE) 03/02/18 15:57 Urine Methadone Screen Negative (NEGATIVE) 03/02/18 15:57 Ur Barbiturates Screen Negative (NEGATIVE) 03/02/18 15:57 Ur Phencyclidine Scrn Negative (NEGATIVE) 03/02/18 15:57 Ur Amphetamines Screen Negative (NEGATIVE) 03/02/18 15:57 U Benzodiazepines Scrn Negative (NEGATIVE) 03/02/18 15:57 U Oth Cocaine Metabols Negative (NEGATIVE) 03/02/18 15:57 U Cannabinoids Screen Negative (NEGATIVE) 03/02/18 15:57 - Hospital Course Hospital Course: 32 year old male with a history of labyrinthitis 10 years ago who presents to the ED reporting that when he got up this morning at 630 am he had sudden onset of dizziness, feeling like the room is spinning, associated with diffuse headache rated "11/10," nausea, vomiting (non bloody, non bilious, too many episodes to count), and lower abdominal pain. He states that movement exacerbated his symptoms. He took 2 Tylenol tablets without relief which prompted his visit 1 hour post onset of symptoms. He notes that his felt nauseous and vomited last night after dinner (they went out for [employer]) so initially he assumed it was something he ate, but when the symptoms persisted he became concerned. In the ED he was treated with Meclizine, Zofran 4mg x 2, 2 L fluid, Ativan 1mg x 2 and Reglan 10 mg x 2 after which he states he is feeling somewhat improved. He has continued dizziness with movement but when resting with his head turned to the left his dizziness subsides. He was also able to tolerate a tuna sandwich, the first food he has eaten since dinner last night. He denies fever, chills, chest pain, palpitations, vision changes, tinnitus, numbness or tingling in his extremities, weight loss or gain, diarrhea , constipation, or urinary changes. Patient was admitted for intractable vertigo. At time of admission orthostatics were completed with the following results, confirming that patient's dizziness was not secondary to orthostasis. - Laying down: 117/66; HR 88 - Sitting up: 119/71; HR 88 - Standing up: 120/78 Additionally, Head CT was reviewed; it showed no acute disease. Repeat EKGs with SIMONE Q6H were ordered and reviewed. Patient's EKGs remained unchanged and troponin was negative x 2. Patient was treated with fluids at 100 ccs/hour. Neurology was consulted; they requested a CTA to r/o vestibular insufficiency. Head CTA was reviewed; it was an unremarkable study. For nausea patient was treated with Zofran 4 mg PO Q6H PRN. ENT was consulted as patient has bilateral cerumen impaction and thus both TMs could not be visualized. Debrox drops were applied to soften the wax. Patient's electrolytes were within normal limits on CMP discounting dehydration as a cause of his symptoms. CBC remained stable with a WBC at 7.5, Hgb at 14.2, and Plt count of 274 at time of admission. Urinalysis was not concerning for infection and urine drug screen was negative for all illicit substances. At time of discharge patient is feeling much improved. He has been able to tolerate food, both dinner on 03/02/2018 and breakfast on 03/03/2018. He notes his dizziness has completely resolved and he is able to comfortably move around without re-instigating his dizziness. His headache has not recurred and he no longer complains of nausea or abdominal pain Below are the instructions provided to the patient upon discharge: 1) Please use debrox ear drops (2 drops in each ear) twice a day for the next 3 days. 2) Please use meclizine 25 mg up to 4 times per day for symptomatic dizziness. 3) Please follow up with Dr. Abreu in the clinic on 03/11, appointment card provided to patient. 4) Please follow up with Dr. Zhao, ENT specialist in 1 week. 5) Please stay hydrated and drink plenty of water. 5) Return to the ER if symptoms worsen. 6) Thank you and take care Discharge Exam - Head Exam Head Exam: ATRAUMATIC, NORMAL INSPECTION, NORMOCEPHALIC - Eye Exam Eye Exam: EOMI, Normal appearance, PERRL Pupil Exam: NORMAL ACCOMODATION - ENT Exam ENT Exam: Mucous Membranes Moist - Respiratory Exam Respiratory Exam: NORMAL BREATHING PATTERN, UNREMARKABLE. absent: Decreased Breath Sounds, Rales, Rhonchi, Wheezes - Cardiovascular Exam Cardiovascular Exam: +S1, +S2. absent: Irregular Rhythm, Systolic Murmur - GI/Abdominal Exam GI & Abdominal Exam: Normal Bowel Sounds. absent: Distended, Firm, Guarding - Back Exam Back exam: NORMAL INSPECTION - Neurological Exam Neurological exam: Alert, CN II-XII Intact, Oriented x3 - Psychiatric Exam Psychiatric exam: Normal Affect, Normal Mood - Skin Skin Exam: Dry, Intact, Normal Color, Warm Discharge Plan - Discharge Medications Prescriptions: Carbamide Peroxide [Debrox Ear Drops] 2 drop AU BID #1 bottle Meclizine [Meclizine*] 25 mg PO QID PRN #60 tab PRN Reason: Other - Follow Up Plan Condition: STABLE Disposition: HOME/ ROUTINE Instructions: Vertigo (a Type of Dizziness) (DC), Nausea and Vomiting, Adult ( DC), Carbamide Peroxide, Meclizine Additional Instructions: Patient cleared for discharged per Dr. Mendoza. 1) Please use debrox ear drops (2 drops in each ear) twice a day for the next 3 days. 2) Please use meclizine 25 mg up to 4 times per day for symptomatic dizziness. 3) Please follow up with Dr. Abreu in the clinic on 03/11, appointment card provided to patient. 4) Please follow up with Dr. Zhao, ENT specialist in 1 week. 5) Please stay hydrated and drink plenty of water. 5) Return to the ER if symptoms worsen. 6) Thank you and take care Referrals: [facility] [Outside] Sonido Zhao MD [Staff Provider] -
--- NOTE | 2018-03-04 14:19 | CARD ---
APPROVED REPORT Date of service: 03/02/2018 EKG Measurement Heart [id number] <Conclusion> Normal sinus rhythm Normal ECG
--- NOTE | 2018-03-04 14:20 | CARD ---
APPROVED REPORT Date of service: 03/02/2018 EKG Measurement Heart [id number] 148P43 [id number] <Conclusion> Normal sinus rhythm Incomplete right bundle branch block Borderline ECG
--- NOTE | 2018-03-04 14:21 | CARD ---
APPROVED REPORT Date of service: 03/02/2018 EKG Measurement Heart [id number] [place] 146P38 [id number] <Conclusion> Normal sinus rhythm Incomplete RBBB Borderline ECG
--- NOTE | 2018-03-05 00:03 | CARD ---
APPROVED REPORT Date of service: 03/03/2018 EKG Measurement Heart [id number] [id number] <Conclusion> Normal sinus rhythm Inferior-posterior infarct, age undetermined Abnormal ECG
== END 2018-03-03 16:20 | disposition home or self-care (01) ==
LOC: C.ER 08:08 → C.9E 15:42 → C.6T 18:31
PROVIDERS: ADMIT Hospitalist; ATTEND Hospitalist
DX: H81.10 Benign paroxysmal vertigo, unspecified ear (principal); E86.0 Dehydration; R11.14 Bilious vomiting; H61.23 Impacted cerumen, bilateral; R26.9 Unspecified abnormalities of gait and mobility; H91.91 Unspecified hearing loss, right ear; Z82.49 Family history of ischemic heart disease and other diseases of the circulatory system; Z80.0 Family history of malignant neoplasm of digestive organs
CPT/HCPCS: 36415; 70450; 70496; 70498; 80053; 81001; 83690; 83735; 84100; 84484; 85025; 96360; 96374; 97110; 97161; 97165; 97530; 99285; G0378; G0480; G8978; G8979; G8980; G8987; G8988; G8989; J2060; J2405; J2765; J7030; Q9967

== ENCOUNTER 2018-07-24 08:57 | Emergency (ER) | payer OTHER ==
[2018-07-24 08:58] VITALS: BMI 27.1
--- NOTE | 2018-07-24 10:29 | C.PDOC ---
History Of Present Illness 32 y/o male presents to the ED complaining of pain to his left side s/p fall. 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 States his ankle got caught between 2 cement blocks, causing him to fall, and feel a pull on the left side. Now complaining of pain to the entire left side from his ankle up to his shoulder. Otherwise patient denies any numbness, paresthesias, extremity weakness, headache, LOC, head trauma. Time Seen by Provider: 07/24/18 09:29 Chief Complaint (Nursing): Lower Extremity Problem/Injury History Per: Patient History/Exam Limitations: no limitations Onset/Duration Of Symptoms: Hrs Current Symptoms Are (Timing): Still Present - Hip Description Of Injury: Fell - Knee Description Of Injury: Fell - Ankle/Foot Description Of Injury: Fell Past Medical History Reviewed: Historical Data, Nursing Documentation, Vital Signs Vital Signs: Last Vital Signs Temp 97.8 F 07/24/18 09:09 Pulse 80 07/24/18 09:09 Resp 16 07/24/18 09:09 BP 145/82 07/24/18 09:09 Pulse Ox 98 07/24/18 09:09 Surgical History: No Surg Hx Family History: States: Unknown Family Hx - Social History Hx Tobacco Use: No Hx Alcohol Use: No Hx Substance Use: No - Immunization History Hx Tetanus Toxoid Vaccination: No Hx Influenza Vaccination: No Hx Pneumococcal Vaccination: No Review Of Systems Constitutional: Negative for: Fever Cardiovascular: Negative for: Chest Pain Respiratory: Negative for: Shortness of Breath Gastrointestinal: Negative for: Abdominal Pain Musculoskeletal: Positive for: Shoulder Pain (left), Arm Pain (left), Leg Pain (left), Foot Pain (left). Negative for: Neck Pain, Back Pain Skin: Negative for: Lesions, Bruising Neurological: Negative for: Weakness, Numbness, Headache, Dizziness, Other (LOC) Physical Exam - Physical Exam Appears: Non-toxic, No Acute Distress Skin: Warm, Dry, No Ecchymosis Head: Atraumatic, Normacephalic Eye(s): bilateral: Normal Inspection, PERRL, EOMI Neck: Normal ROM, No Midline Cervical Tenderness, Supple Chest: Symmetrical, No Tenderness Cardiovascular: Rhythm Regular, No Murmur Respiratory: Normal Breath Sounds, No Accessory Muscle Use Gastrointestinal/Abdominal: Soft, No Tenderness, No Distention Back: No CVA Tenderness, No Vertebral Tenderness Extremity: Tenderness (+ Tenderness to the left lateral upper leg, just below the hip; No significant bony tenderness to the left ankle), Capillary Refill (< 2 sec), No Deformity, Swelling (mild swelling to the left ankle) Pulses: Left Dorsalis Pedis: Normal, Right Dorsalis Pedis: Normal Neurological/Psych: Oriented x3, Normal Motor, Normal Sensation ED Course And Treatment O2 Sat by Pulse Oximetry: 98 (RA) Pulse Ox Interpretation: Normal - Other Rad x-ray ankle X-Ray: Interpreted by Me, Viewed By Me Interpretation: No acute fracture or dislocation Medical Decision Making Medical Decision Making: Plan: --Motrin PO --Tylenol PO --Flexeril PO --Ankle x-ray Imaging reviewed, negative for fracture. Patient notified. 10:45 On re-evaluation patient is resting comfortably and reports improvement in pain. SHANIKA wrap applied to left ankle. Patient offered crutches, and declines. Advised to follow up with PMD for re-evaluation. Disposition Counseled Patient/Family Regarding: Studies Performed, Diagnosis, Need For Followup, Rx Given - Disposition Disposition: HOME/ ROUTINE Disposition Time: 10:46 Condition: STABLE Prescriptions: Cyclobenzaprine [Cyclobenzaprine HCl] 10 mg PO TID #15 tab Ibuprofen [Motrin] 600 mg PO TID #15 tab Instructions: Muscle Strain (DC) Forms: Gen Discharge Inst Indonesian, [facility] (Indonesian), Work Excuse - POA Present On Arrival: None - Clinical Impression Clinical Impression: Muscle strain - Scribe Statement The provider has reviewed the documentation as recorded by the Taisha Espinoza Provider Attestation: All medical record entries made by the Demarcusibdelfino were at my direction and personally dictated by me. I have reviewed the chart and agree that the record accurately reflects my personal performance of the history, physical exam, medical decision making, and the department course for this patient. I have also personally directed, reviewed, and agree with the discharge instructions and disposition.
--- NOTE | 2018-07-24 10:46 | RAD ---
Date of service: 07/24/2018 PROCEDURE: Left Ankle Radiographs. HISTORY: fall COMPARISON: None available. FINDINGS: BONES: No acute cardiopulmonary disease appreciated. A small, well corticated accessory ossicle seen inferior to the medial malleolus. JOINTS: No subluxation or dislocation. No osteoarthritis. Ankle mortise maintained. Talar dome intact SOFT TISSUES: Normal. OTHER FINDINGS: None. IMPRESSION: No definite acute fracture or dislocation left ankle.
[2018-07-24 11:11] VITALS: BP 130/78; PULSE 57; RESP 18; TEMP 97.7; O2SAT 99
== END 2018-07-24 11:29 | disposition home or self-care (01) ==
LOC: C.ER 08:57
DX: T14.8XXA Other injury of unspecified body region, initial encounter (principal); W00.0XXA Fall on same level due to ice and snow, initial encounter; Y99.0 Civilian activity done for income or pay